=== PATIENT | male | born 1935 | race Caucasian/White ===

== ENCOUNTER 2022-06-08 20:36 | Emergency (ER) | payer OTHER, MEDICAID ==
[~2022-06-08] VITALS: Ht 154.9 cm; Wt 64.4 kg
[2022-06-08 20:51] VITALS: BP_SYST 134
--- NOTE | 2022-06-08 20:58 | NUR ---
Patient triaged and placed in waiting room. VSS and patient appears in no acute distress at this time. Accompanied by self, awaiting available bed, and MD notified of need for MSE.
[2022-06-08 21:33] LABS: BASOPHILS # (AUTO) 0.1 K/uL (0.0-0.2); BASOPHILS % (AUTO) 1.9 % (0.0-2.0); EOSINOPHILS # (AUTO) 0.1 K/uL (0.0-0.4); EOSINOPHILS % (AUTO) 2.6 % (0.0-4.0); HEMATOCRIT 26.8 % (36-54); HEMOGLOBIN 9.1 g/dL (14.0-18.0); LYMPHOCYTES # (AUTO) 0.8 K/uL (1.0-5.5); LYMPHOCYTES % (AUTO) 18.4 % (20.5-51.5); MEAN CORPUSCULAR HEMOGLOBIN 34 pg (27-31); MEAN CORPUSCULAR HGB CONC 34 % (32-36); MEAN CORPUSCULAR VOLUME 100 fL (79.0-98.0); MONOCYTES # (AUTO) 0.7 K/uL (0.0-1.0); MONOCYTES % (AUTO) 15.6 % (1.7-9.3); NEUTROPHILS # (AUTO) 2.7 K/uL (1.8-7.7); NEUTROPHILS % (AUTO) 61.5 % (40.0-70.0); PLATELET COUNT (AUTO) 206 K/uL (130-430); RED BLOOD CELL COUNT(AUTO) 2.68 MIL/uL (4.2-6.2); RED CELL DISTRIBUTION WIDTH 16.5 % (9.0-15.0); WHITE BLOOD COUNT (AUTO) 4.3 K/uL (4.8-10.8)
[2022-06-08 21:42] LABS: ANION GAP 7 (5-15); CALCIUM 8.9 mg/dL (8.4-11.0); CHLORIDE 103 mmol/L (98-107); CREATININE 3.29 mg/dL (0.55-1.30); GLUCOSE 140 mg/dL (70-99); UREA NITROGEN, BLOOD 46 mg/dL (8-21)
[2022-06-08 21:45] LABS: INR 1.1 (0.80-1.20); PROTHROMBIN TIME 11.3 SECS (9.5-12.5)
[2022-06-08 21:49] LABS: ACETONE, SERUM NEGATIVE (NEGATIVE)
[2022-06-08 21:53] LABS: ALANINE AMINOTRANSFERASE 12 U/L (12-78); ALBUMIN 3.7 g/dL (3.4-4.8); ASPARTATE AMINOTRANSFERASE 17 U/L (10-37); FREE T4 (FREE THYROXINE) 0.8 ng/dl (0.8-1.5); TOTAL BILIRUBIN 0.3 mg/dL (0.0-1.0)
[2022-06-08 22:18] LABS: THYROID STIMULATING HORMONE 0.79 uIu/mL (0.36-3.74)
--- NOTE | 2022-06-08 22:38 | NUR ---
Patient to ER bed 07 to gown for evaluation. Side rails up.
--- NOTE | 2022-06-08 22:38 | NUR ---
PT TO RADIOLOGY VIA [facility] ACCOMPANIED BY STAFF. WILL PERFORM INITIAL ASSESSMENT WHEN RETURNED.
--- NOTE | 2022-06-08 22:49 | NUR ---
PT BACK FROM RADIOLOGY VIA [facility] ACCOMPANIED BY STAFF.
--- NOTE | 2022-06-08 22:57 | NUR ---
COVID SWAB COLLECTED AND SENT TO LAB.
--- NOTE | 2022-06-08 23:08 | NUR ---
USED [employer] REPRESENTATIVE IPAD TO SPEAK TO PATIENT. PT WAS STATING HE COULD NOT HEAR [employer] REPRESENTATIVE AND WAS NOT ANSWERING QUESTIONS. MD WAS AT BEDSIDE TO PERFORM MSE. VSS. PER EMT, PT WAS BROUGHT FROM HOME WITH C/O GEN WEAKNESS X 2DAY. PT NOT WANTING TO EAT AND FEELING TIRED. SAFETY PRECAUTIONS IN PLACE AND CONNECTED TO MONITOR.
--- NOTE | 2022-06-08 23:22 | NUR ---
DAUGHTER BROUGHT TO BEDSIDE TO TRANSLATE.
--- NOTE | 2022-06-08 23:30 | NUR ---
PER PT DAUGHTER, PT HAD BEEN FEELING SOB, HAVING BODY ACHES, AND HAS NOT BEEN SLEEPING WELL. PT SPEAKING IN FULL SENTENCES IN [employer] LANG, EVEN AND UNLABORED RESP NOTED.
[2022-06-09 00:28] LABS: BILIRUBIN,URINE NEGATIVE (NEGATIVE); BLOOD, URINE 1+ (NEGATIVE); COLOR,URINE YELLOW (YELLOW); GLUCOSE,URINE NEGATIVE (NEGATIVE); KETONES,URINE NEGATIVE (NEGATIVE); LEUKOCYTE ESTERASE ,URINE NEGATIVE (NEGATIVE); NITRITE, URINE NEGATIVE (NEGATIVE); PROTEIN URINE 1+ (NEGATIVE); UROBILINOGEN,URINE 0.2 (0.2-1.0)
[2022-06-09 00:32] LABS: CLARITY/URINE HAZY (CLEAR)
[2022-06-09 00:40] LABS: BACTERIA,URINE None Seen /HPF (None Seen); RBC,URINE 0-3 /HPF (0-3); WBC,URINE 0-3 /HPF (0-3)
[2022-06-09 01:13] VITALS: BP_SYST 135
--- NOTE | 2022-06-09 01:13 | NUR ---
Patient given written and verbal discharge instructions and verbalizes understanding. ER DR. MAYBERRY discussed with patient the results and treatment provided. Patient in stable condition. ID arm band removed. Patient educated on pain management and to follow up with PMD. Pain Scale 0. Opportunity for questions provided and answered. Medication side effect fact sheet provided.
== END 2022-06-09 01:13 | disposition home or self-care (01) ==
LOC: SED 20:36
DX: R53.1 Weakness (principal); D64.9 Anemia, unspecified; R79.89 Other specified abnormal findings of blood chemistry; F03.90 Unspecified dementia, unspecified severity, without behavioral disturbance, psychotic disturbance, mood disturbance, and anxiety; R06.02 Shortness of breath; J44.9 Chronic obstructive pulmonary disease, unspecified; I10 Essential (primary) hypertension; Z79.899 Other long term (current) drug therapy; Z20.822 Contact with and (suspected) exposure to COVID-19
CPT/HCPCS: 36415; 70450-TC; 71045; 76376; 80053; 81000; 81002; 82009; 82550; 82962; 83605; 84439; 84443; 84484; 85025; 85610-TC; 85730-TC; 93005; 99285